=== PATIENT | female | born 1960 | race Caucasian/White ===

== ENCOUNTER 2020-04-02 08:28 | Outpatient (CLI) | payer MEDICARE, SELFPAY ==
--- NOTE | ~2020-04-02 | XR_ITS ---
XR foot LT min 3V DATE: 04/02/2020 09:02 INDICATION: Left bunion TECHNIQUE: Standing 4 view examination COMPARISON: 06/21/2019 standing left foot views FINDINGS: Hallux valgus and bunion deformity is again noted. Mild osteoarthritis at the first metatarsophalangeal joint. No fracture, dislocation, periosteal reaction or bone destruction. IMPRESSION: Hallux valgus and bunion deformity Reviewed, dictated and finalized at location B.
--- NOTE | ~2020-04-02 | US_ITS ---
EXAMINATION: US arterial ankle brachial ind DATE: 04/02/2020 09:30 INDICATION: Peripheral arterial disease. Smoker. Hypercholesterolemia. Previous vascular surgery. His tory of stroke. TECHNIQUE: Segmental pressures and plethysmographic and Doppler waveforms of the brachial and lower e xtremity arteries were obtained. COMPARISON: None. FINDINGS: Right and left brachial artery pressures of 155 mm Hg and 154 mm Hg, respectively, are concordant (no rmal difference <= 30 mmHg). The right high-thigh pressure index is 1.04 (normal > 1.2). The right ankle-brachial index (ALFONSO) is 0 .99 (normal >= 0.9-1.0). The right great toe-brachial index (TBI) is 0.77 (normal >= 0.65). The right lower extremity segmental pressure gradients are normal (normal gradients <= 20-30 mmHg between jaz cent levels on the same leg or the same levels on the two legs). Arterial Doppler waveforms are bipha sic. The left high-thigh pressure index is 0.95. The left ALFONSO is 0.95. The left TBI is 0.78. The left lowe r extremity segmental pressure gradients are within normal range. Arterial Doppler waveforms are biph asic. IMPRESSION: Aortoiliac inflow disease, left greater than right Normal ALFONSO values of 0.99 on the right and 0.95 on the left Normal TBI values of 0.77 and 0.78 Reviewed, dictated and finalized at Location A. Reviewed, dictated and finalized at location B.
== END 2020-04-02 08:29 | disposition home or self-care (01) ==
PROVIDERS: PCP Family Medicine; Visit Provider Podiatrist Foot & Ankle Surgery
DX: M21.612 Bunion of left foot (principal); I73.9 Peripheral vascular disease, unspecified; M20.12 Hallux valgus (acquired), left foot
CPT/HCPCS: 73630; 93922

== ENCOUNTER 2020-05-28 08:11 | Outpatient (CLI) | payer MEDICARE, SELFPAY ==
--- NOTE | ~2020-05-28 | MR_ITS ---
EXAMINATION: MR brain/brain stem wo con EXAM DATE: 05/28/2020 09:09 INDICATION: Left posterior headaches. TECHNIQUE: Magnetic resonance imaging (MRI) of the brain/brain stem obtained without contrast. Sagitt al T1, axial diffusion, gradient echo (T2*), T1, T2, FLAIR sequences obtained. There is no prior st udy for comparison. Correlation was made with CTA brain carotid 02/09/2018. FINDINGS: There are no areas of restricted diffusion to suggest acute infarction. There is no acute hemorrhage seen on the T2*, a hemosiderin sensitive sequence. No intraparenchymal brain mass lesion. Moderate size old left parietal lobe infarction. There is absence of normal flow related signal wit hin the distal aspect of the left internal carotid artery, occlusion which was confirmed on a CT freddie ogram in 2018. There is mild periventricular and subcortical T2/FLAIR signal hyperintensity, nonspec ific but probably related to small vessel ischemic disease (microangiopathy). There is mild promine nce of the sulci and ventricles related to cerebral atrophy. There are no extra-axial collections. The orbits are unremarkable. Soft tissue is unremarkable. IMPRESSION: 1. 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 2. Left internal carotid artery occlusion. 3. Chronic age related findings. Reviewed, dictated and finalized at location A.
== END 2020-05-28 08:12 | disposition home or self-care (01) ==
PROVIDERS: PCP Family Medicine; Visit Provider Psychiatry & Neurology Neurology
DX: R51 Headache (principal)
CPT/HCPCS: 70551

== ENCOUNTER 2021-08-07 15:13 | Outpatient (CLI) | payer MEDICARE, SELFPAY ==
--- NOTE | ~2021-08-07 | CT_ITS ---
EXAMINATION: CT lung screening DATE: 08/07/2021 15:33 INDICATION: Personal history of nicotine dependence, current smoker with 40 pack year history TECHNIQUE: Computed tomography (CT) of the chest was performed without intravenous contrast. The dose -length product (DLP) was 69.26 mGy-cm. Automated exposure control and iterative reconstruction techn [employer] were employed. COMPARISON: None FINDINGS: There is moderate emphysema. No suspicious pulmonary nodule is identified. Calcified pulmon flaquito nodules and calcified left hilar lymph nodes are consistent with old granulomatous disease. There is no pleural effusion or pneumothorax. The lungs are free of acute airspace opacities. No pathologi raegan enlarged thoracic lymph nodes are identified. The heart size is normal. The gallbladder is surg ically absent. Punctate calcifications in an otherwise normal spleen likely represent healed granulom atous disease. There is moderate thoracic spondylosis. IMPRESSION: 1. Lung-RADS category 1: Negative. Continue annual screening with noncontrast low-dose chest CT in 12 months. Reviewed, dictated and finalized at location A. TION CLASSIFICATION SPECIALIST IMPRESSION: 1. Lung-RADS category 1: Negative. Continue annual screening with noncontrast l ow-dose chest CT in 12 months.
--- NOTE | ~2021-08-07 | MR_ITS ---
EXAMINATION: MR cervical spine wo con EXAM DATE: 08/07/2021 16:35 INDICATION: Cervical spondylosis, intervertebral disc degeneration. States that in back pain for year s. TECHNIQUE: Multi-sequential, multiplanar MR images of the cervical spine were obtained without contra st. Axial T2, axial T2 MERGE sequence. Sagittal T1, T2, T2 fat saturation images also obtained. Com parison is made to prior examination from 02/07/2015. FINDINGS: There is moderate disc disease C5-6 and 6-7, mild at C4-5 with 2 mm anterolisthesis. The s saundra cord signal intensity and intrinsic morphology is normal. Cervicomedullary junction is normal i n appearance. There are no suspicious marrow signal abnormalities. Paraspinal soft tissue is unremark able. Level by level evaluation: C2-C3: Disc does not extend beyond the endplate margin. Uncovertebral joint arthropathy: None. Facet joint arthropathy: Mild bilateral. Neural foraminal stenosis: No stenosis. Central canal stenosis: No stenosis. C3-C4: Disc does not extend beyond the endplate margin. Uncovertebral joint arthropathy: None. Facet joint arthropathy: Mild bilateral. Neural foraminal stenosis: No stenosis. Central canal stenosis: No stenosis. C4-C5: There is a minimal diffuse disc bulge. Uncovertebral joint arthropathy: Mild bilateral. Facet joint arthropathy: Mild to moderate left, mild right. Neural foraminal stenosis: No stenosis. Central canal stenosis: No stenosis. C5-C6: There is a mild to moderate diffuse disc bulge. Uncovertebral joint arthropathy: Moderate to severe left, mild to moderate right. Facet joint arthropathy: Mild bilateral. Neural foraminal stenosis: Moderate to severe left, mild right. Central canal stenosis: Mild. C6-C7: There is a mild to moderate diffuse disc bulge. Uncovertebral joint arthropathy: Moderate left, mild right. Facet joint arthropathy: Mild. Neural foraminal stenosis: Moderate left. Central canal stenosis: Mild. C7-T1: Disc does not extend beyond the endplate margin. Uncovertebral joint arthropathy: Mild to moderate left. Facet joint arthropathy: Mild left. Neural foraminal stenosis: No stenosis. Central canal stenosis: No stenosis. There is interval progression spondylosis compared to 2014. IMPRESSION: 1. C5-6 and 6-7 predominant cervical spondylosis. Reviewed, dictated and finalized at location A. LABOR DELIVERY
--- NOTE | ~2021-08-07 | MR_ITS ---
EXAMINATION: MR lumbar spine wo con EXAM DATE: 08/07/2021 16:35 INDICATION: Back pain for years. TECHNIQUE: Multi-sequential, multiplanar MR images of the lumbar spine were obtained without contrast . Sagittal T1, T2, T2 fat saturation images. Axial T2 weighted images. Comparison is made to prior examination from 02/07/2015. FINDINGS: Mild diffuse thoracolumbar disc disease. The vertebral bodies are aligned in the AP dimensi on. The conus medullaris terminates at the L2 level and has normal signal intensity and morphology. There are no suspicious marrow signal abnormalities. Probable aortobiiliac graft. There is a 2 cm flu id signal intensity left renal lesion likely cyst. Level by level evaluation: T12-L1: There is a mild diffuse disc bulge. Facet arthropathy: None. Neural foraminal stenosis: No stenosis. Central canal stenosis: No stenosis. L1-L2: There is a minimal diffuse disc bulge. Facet arthropathy: None. Neural foraminal stenosis: No stenosis. Central canal stenosis: No stenosis. L2-L3: There is a mild to moderate diffuse disc bulge. Facet arthropathy: Mild bilateral. Neural foraminal stenosis: Minimal left. Central canal stenosis: No stenosis. L3-L4: There is a mild diffuse disc bulge. Facet arthropathy: Minimal bilateral. Neural foraminal stenosis: Mild left. Central canal stenosis: No stenosis. L4-L5: There is a mild to moderate diffuse disc bulge asymmetric to the right Facet arthropathy: Mild to moderate. Neural foraminal stenosis: Mild to moderate right, mild left. Central canal stenosis: Mild. L5-S1: There is a mild diffuse disc bulge. Facet arthropathy: Mild. Neural foraminal stenosis: Mild right. Central canal stenosis: No stenosis. IMPRESSION: 1. Mild to moderate lumbar spondylosis. Reviewed, dictated and finalized at location A. [employer]
== END 2021-08-07 15:14 | disposition home or self-care (01) ==
LOC: ANHIMG 15:19
PROVIDERS: PCP Family Medicine; Visit Provider Family Medicine
DX: M50.320 Other cervical disc degeneration, mid-cervical region, unspecified level (principal); M51.34 Other intervertebral disc degeneration, thoracic region; M47.812 Spondylosis without myelopathy or radiculopathy, cervical region; M47.816 Spondylosis without myelopathy or radiculopathy, lumbar region; M51.36 Other intervertebral disc degeneration, lumbar region; Z87.891 Personal history of nicotine dependence
CPT/HCPCS: 71271; 72141; 72148

== ENCOUNTER 2023-10-20 09:14 | Outpatient (CLI) | payer MEDICARE, SELFPAY ==
--- NOTE | ~2023-10-20 | CT_ITS ---
CT of the Abdomen and Pelvis: Indication: Abdominal pain Technique: 2.5 mm axial scans were obtained through the abdomen and pelvis following intravenous adm inistration of 100 cc of Omnipaque 350. Dose reduction technique was used on this scan by utilizing a utomated exposure control and iterative reconstruction technique. The dose-length product (DLP) was 3 95.80 mGy-cm. Findings: Scans through the lung bases are unremarkable. The liver, spleen, pancreas, adrenals and kidneys are within normal limits. Cholecystectomy clips are present. There is apparent aortobifemoral bypass. Probable moderate to high-grade stenosis at the or igin of the celiac artery. No lymphadenopathy. No bowel obstruction or bowel wall thickening. There is no evidence to suggest acute appendicitis. Images through the pelvis were performed. Urinary bladder unremarkable. No pelvic mass seen. No ascit es. 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 No other significant findings. Reviewed, dictated and finalized at location . ARIUM CURATOR Impression: Aortobifemoral bypass with probable moderate to high-grade stenosis at the orig in of the celiac artery. No other significant findings.
[2023-10-20 09:36] LABS: Estimated Glomerular Filt Rate > 60
== END 2023-10-20 09:15 | disposition home or self-care (01) ==
PROVIDERS: PCP Family Medicine; Visit Provider Nurse Practitioner Family
DX: R10.9 Unspecified abdominal pain (principal); Z95.828 Presence of other vascular implants and grafts
CPT/HCPCS: 74177; Q9967